=== PATIENT | female | born 1970 | race African-American/Black ===

== ENCOUNTER 2016-05-24 10:12 | Emergency (ER) | payer SELFPAY ==
[~2016-05-24] VITALS: Ht 160 cm; Wt 72.0 kg
[2016-05-24 10:14] VITALS: BP 140/106; PULSE 86; RESP 24; TEMP 98.4; O2SAT 99
[2016-05-24 10:26] VITALS: BP 130/95; PULSE 84; RESP 16; O2SAT 99
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
[2016-05-24] MEDS ORDERED: IBUPROFEN 600 MG TAB PO ONE (11:15)
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
[2016-05-24] MEDS ORDERED: IBUP-232 PO (12:02)
== END 2016-05-24 12:11 | disposition home or self-care (01) ==
LOC: NEPD 10:12
DX: S00.83XA Contusion of other part of head, initial encounter (principal); S80.12XA Contusion of left lower leg, initial encounter; M25.551 Pain in right hip; R07.89 Other chest pain; Y09 Assault by unspecified means
CPT/HCPCS: 70140; 71020; 73502; 73590; 99284